=== PATIENT | male | born 1925 | race Caucasian/White ===

== ENCOUNTER → 2016-12-04 | Day surgery (SDC) | payer OTHER ==
[2016-11-20 14:45] VITALS: Ht 189.2 cm; Wt 81.8 kg
[~2016-12-04] VITALS: Ht 189.2 cm; Wt 81.8 kg
[~2016-12-04] MED LIST: ACETAMINOPHEN 325 MG TAB PO PRN; ASPI81TA28 PO; ATROPINE SULFATE 0.1 MG/ML 5ML SYR IV PRN; ATROPINE SULFATE 1% OP OINT PER APPLICATION CHARGE ONE; ATROPINE SULFATE 1% OP SOLN 2 ML BTL ONE; AcetylCHOLine CHL OP SOL 1:100 2 ML BTL ONE; BRIMONIDINE TART 0.2% OP SOLN PER DROP CHARGE ONE; BSS 500ML IRRIG ONE; BSS FLUSH ONE; CEFAZOLIN SOD 1 GM VIAL ONE; EpHEDrine SULFATE INJ 50 MG/ML AMP IV PRN; EpINEphrine INJ 1MG/ML AMP 1 MG/ML AMP ONE; FENTANYL CITRATE INJ 50 MCG/1 ML 2 ML VIAL IV PRN; FENTANYL CITRATE INJ 50 MCG/1 ML 2 ML VIAL ONE; HEALON 10MG/ML 0.85 ML SYR INSTIL ONE; HYDR2TAB48 PO; LACTATED RINGER'S 1000ML 500 ML IV ONE; LIDOCAINE 3.5% OPH GEL PER APPLICATION CHARGE OPR SCH; LIDOCAINE 4% OP SOLN DROP CHARGE ONE; LIDOCAINE 4% OP SOLN DROP CHARGE OPR SCH; LIDOCAINE HCL 1% 20 ML VIAL ONE; LIDOCAINE HCL 1% MPF 2 ML VIAL ONE; METO50TA7 PO; MIDAZOLAM HCL 1 MG/ML 2ML VIAL ONE; MOXIFLOXACIN OPH SOLN PER DROP CHARGE ONE; ONDANSETRON INJ 2 MG/ML 2 ML VIAL IV PRN; PHEN-876 PO; POVIDONE-IODINE OP SOLN 30 ML BTL ONE; PROPARACAINE 0.5% OP SOLN PER DROP CHARGE OPR SCH; SIMV80TA2 PO; TETRACAINE HCL (OPHTH) 60 DROPS/4 ML BTL OP ONE; TOBRAMYCIN/DEXAMETHASONE OPH OINT PER APPLN CHARGE ONE
[2016-12-04] MEDS: MOXIFLOXACIN OPH SOLN PER DROP CHARGE OPR SCH ×3 (09:01→09:21)
--- NOTE | 2016-12-04 09:12 | History & Physical Bridge - [place] ---
H&P Re-Evaluation Bridge Note: I have examined the patient, reviewed the History & Physical and in the interval since the performance of the History & Physical I have noted the following changes of clinical significance: No changes noted
--- NOTE | 2016-12-04 11:12 | Discharge Instructions-SurgCtr ---
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 Post Anesthesia Instructions: If you have had General Anesthesia or IV Sedation: * Do not drive today. * Resume driving when surgeon permits. * Do not make important decisions or sign legal documents today. * Call surgeon for: 1. Temperature elevations greater than 101 degrees F. 2. Uncontrollable pain. 3. Excessive bleeding. 4. Persistent nausea and vomiting. 5. Medication intolerance (nausea, vomiting or rash). * For nausea and vomiting use only clear liquids such as: tea, soda, bouillon until nausea subsides, then gradually increase diet as tolerated. * If you have any concerns or questions, call your surgeon's office. If physician is unavailable and it is an emergency, call 911 or go to the nearest emergency room. . Instructions / Follow-Up Instructions / Follow-Up ACTIVITY RECOMMENDATIONS: * Bedrest, eyes to the tj MEDICATIONS: Resume previous medications unless instructed otherwise by your surgeon. Eye drops (today and tomorrow): Gatifloxacin - one drop in operative eye every 2 hours while awake Prednisolone 1% - one drop in operative eye every 2 hours while awake SPECIAL CARE INSTRUCTIONS: * If any problems or concerns, please call Dr. Olmos's office at . * Keep plastic shield taped over eye to sleep at night. * Keep plastic shield taped over eye except to administer eye drops. * Keep plastic shield on until office visit the following day. FOLLOW UP VISIT: Follow-up with Dr. Olmos in the [place] office as scheduled. If not already scheduled, please call the office at . Diet Recommendations Home Diet: resume previous diet Procedures Procedures Performed: Right Descements Stripping Automated Endothelial Keratoplasty Pending Studies Studies pending at discharge: yes List of pending studies: cornea donor culture Medical Emergencies . Who to Call and When: Medical Emergencies: If at any time you feel your situation is an emergency, please call 911 immediately. . Non-Emergent Contact Non-Emergency issues call your: Casino Host . . "Provider Documentation" section prepared by Jake Olmos.
--- NOTE | 2016-12-04 11:12 | [facility] Post Operative Brief Note ---
Immediate Operative Summary Operative Date Dec 04, 2016. Pre-Operative Diagnosis Right Failed DSAEK, Corneal Edema Post-Operative Diagnosis Same Procedure(s) Performed Right Descements Stripping Automated Endothelial Keratoplasty Surgeon Dr. Olmos Telephone Repairer Surgeon(s) None Estimated Blood Loss 0 Findings Cornea edema/ failed DSAEK graft right eye Specimens A. Corneal Donor Rim for routine culture, gram stain, and aerobic Complication(s) None Disposition Recovery Room / PACU
[2016-12-04 11:15] VITALS: TEMP 36.2
--- NOTE | 2016-12-04 12:14 | OPERATIVE REPORT ---
DATE OF OPERATION: 12/04/2016 PREOPERATIVE DIAGNOSIS: Failed DSAEK graft with corneal edema, right eye. POSTOPERATIVE DIAGNOSIS: Same. PROCEDURE PERFORMED: Descemet stripping automated endothelial keratoplasty, right eye. COMPLICATIONS: None. ESTIMATED BLOOD LOSS: None. ANESTHESIA: Local with sedation. DESCRIPTION OF PROCEDURE: After informed consent was obtained in the holding area, attention was first turned to the donor cornea. It was placed endothelial side up on the endothelial trephine and trephinated with an 8.0 mm Selena trephine by myself. It was then covered in Optisol and set aside. The patient was then brought back to the operating room where cardiac monitoring leads and oxygen by nasal cannula was administered by anesthesia. Gentle IV sedation was given, and the patient's right eye was prepped and draped in usual sterile fashion. Wire lid speculum was placed in the right eye and the operating microscope swung into position. Using 0.12 forceps and a supersharp blade, a paracentesis port was made at the 11 o'clock position of the patient's right eye. 1% nonpreserved lidocaine was injected into the anterior chamber for anesthesia. The previously used Selena trephine was inked and used to delano the surface of the cornea for diameter of 8.0 mm. The temporal limbus was then marked for 4 mm and a 2.2 mm keratome blade was used to make the primary shelved incision at the 9 o'clock position of the patient's right eye and enlarged for a total of 4 mm. Anterior chamber was then filled with Healon and a failed DSAEK graft was removed from the eye using a reversed Sinskey hook and Utrata forceps. The stromal cheese cooker was then used to roughen the stromal bed in the periphery. The irrigation aspiration handpiece was then used to remove the viscoelastic material from the eye. The donor graft was then placed on the EndoSerter with a drop of Healon on it and retracted into the EndoSerter. The EndoSerter was then used to insert the donor cornea graft into the eye. It was then unfolded underneath BSS and air and a single 10-0 nylon suture was placed through the primary incision. A complete air fill of the eye was achieved and held for 10 minutes after which time the interface was milked using a Rubi Lasik roller. Another 10 minutes elapsed after which time, ReSure sealant was placed over the primary incision and the paracentesis port. The wire lid speculum was removed from the eye. Vigamox, brimonidine, TobraDex ointment and atropine were placed on the eye and the eye was shielded. The patient tolerated the procedure well and was taken to recovery area in stable condition. I attest to the content of the Intraoperative Record and any orders documented therein. Any exceptio ns are noted below.
[2016-12-04 12:17] VITALS: BP 165/73; PULSE 52; O2SAT 94
--- NOTE | 2016-12-04 12:20 | Anesthesia Progress Nt - [facility] ---
Anesthesia Post Op Note Date & Time Dec 04, 2016 at 12:20 Vital Signs Pain Intensity: 0 Vital Signs Past 12 Hours Date Time Temp Pulse Resp B/P Pulse Ox O2 Delivery O2 Flow Rate FiO2 12/04/16 12:17 52 16 165/73 94 Room Air 12/04/16 11:41 48 18 145/62 94 Room Air 12/04/16 11:15 36.2 63 16 164/79 99 Room Air 12/04/16 08:53 37.1 55 20 166/79 97 Room Air Notes Mental Status: alert / awake / arousable, participated in evaluation Pt Amnestic to Procedure: Yes Nausea / Vomiting: adequately controlled Pain: adequately controlled Airway Patency, RR, SpO2: stable & adequate BP & HR: stable & adequate Hydration State: stable & adequate Anesthetic Complications: no major complications apparent
== END | disposition home or self-care (01) ==
LOC: X.SURG 08:26
PROVIDERS: ATTEND Ophthalmology
DX: T86.841 Corneal transplant failure (principal); Y83.8 Other surgical procedures as the cause of abnormal reaction of the patient, or of later complication, without mention of misadventure at the time of the procedure; H18.20 Unspecified corneal edema; I10 Essential (primary) hypertension; Z86.73 Personal history of transient ischemic attack (TIA), and cerebral infarction without residual deficits; Z88.5 Allergy status to narcotic agent; Z68.22 Body mass index [BMI] 22.0-22.9, adult

== ENCOUNTER → 2016-12-06 | Day surgery (SDC) | payer OTHER ==
[2016-12-05 09:37] VITALS: Ht 189.2 cm; Wt 81.8 kg
[~2016-12-06] VITALS: Ht 189.2 cm; Wt 81.8 kg
[~2016-12-06] MED LIST changes: +AMVISC PLUS 0.8ML SYRINGE INT OCU ONE; -ATROPINE SULFATE 1% OP OINT PER APPLICATION CHARGE ONE; -AcetylCHOLine CHL OP SOL 1:100 2 ML BTL ONE; -BSS 500ML IRRIG ONE; -CEFAZOLIN SOD 1 GM VIAL ONE; -EpINEphrine INJ 1MG/ML AMP 1 MG/ML AMP ONE; -HEALON 10MG/ML 0.85 ML SYR INSTIL ONE; -LIDOCAINE HCL 1% 20 ML VIAL ONE; +NURSING VERBAL MED ORDER ONE; -ONDANSETRON INJ 2 MG/ML 2 ML VIAL IV PRN; +PHENYLEPHRINE 100MCG/ML 5ML SYR IV PRN; -TETRACAINE HCL (OPHTH) 60 DROPS/4 ML BTL OP ONE
[2016-12-06] MEDS: MOXIFLOXACIN OPH SOLN PER DROP CHARGE OPR SCH ×3 (06:39→06:54)
--- NOTE | 2016-12-06 07:37 | Discharge Instructions-SurgCtr ---
Discharge Instructions Visit Reason for Visit: Right Eye Secondary Cornea Edema Discharge Discharge Diagnosis / Problem: refloat DSAEK graft right eye Discharge Goals Goal(s): Improve function Activity Recommendations Activity Limitations: per Instructions/Follow-up section Lifting Limitations: until after follow-up appointment Anesthesia . Post Anesthesia Instructions: If you have had General Anesthesia or IV Sedation: * Do not drive today. * Resume driving when surgeon permits. * Do not make important decisions or sign legal documents today. * Call surgeon for: 1. Temperature elevations greater than 101 degrees F. 2. Uncontrollable pain. 3. Excessive bleeding. 4. Persistent nausea and vomiting. 5. Medication intolerance (nausea, vomiting or rash). * For nausea and vomiting use only clear liquids such as: tea, soda, bouillon until nausea subsides, then gradually increase diet as tolerated. * If you have any concerns or questions, call your surgeon's office. If physician is unavailable and it is an emergency, call 911 or go to the nearest emergency room. . Instructions / Follow-Up Instructions / Follow-Up ACTIVITY RECOMMENDATIONS: * Bedrest, eyes to the tj. MEDICATIONS: Resume previous medications unless instructed otherwise by your surgeon. Eye drops (today and tomorrow): Gatifloxacin - one drop in operative eye 4 times a day Prednisolone 1% - one drop in operative eye 4 times a day SPECIAL CARE INSTRUCTIONS: * If any problems or concerns, please call Dr. Olmos's office at . * Keep plastic shield taped over eye to sleep at night. * Keep plastic shield taped over eye except to administer eye drops. * Keep plastic shield on until office visit the following day. FOLLOW UP VISIT: Follow-up with Dr. Olmos in the [place] office as scheduled. If not already scheduled, please call the office at . Diet Recommendations Home Diet: resume previous diet Procedures Procedures Performed: Right Eye Refloatation Of Cornea Graft Pending Studies Studies pending at discharge: no Medical Emergencies . Who to Call and When: Medical Emergencies: If at any time you feel your situation is an emergency, please call 911 immediately. . Non-Emergent Contact Non-Emergency issues call your: Weapons And Tactics Instructor . . "Provider Documentation" section prepared by Jake Olmos.
--- NOTE | 2016-12-06 07:37 | [facility] Post Operative Brief Note ---
Immediate Operative Summary Operative Date Dec 06, 2016. Pre-Operative Diagnosis Right Eye Detached DSAEK Graft Post-Operative Diagnosis Same Procedure(s) Performed Right Eye Refloatation Of Cornea Graft Surgeon Dr. Olmos Cylinder Press Operator Apprentice Surgeon(s) None Estimated Blood Loss 0 mL Findings detached dsaek graft right eye Specimens None Complication(s) None Disposition Recovery Room / PACU
--- NOTE | 2016-12-06 08:02 | OPERATIVE REPORT ---
DATE OF OPERATION: 12/06/2016 PREOPERATIVE DIAGNOSIS: Detached DSAEK graft, right eye. POSTOPERATIVE DIAGNOSIS: Same. PROCEDURE PERFORMED: Refloat DSAEK graft, right eye. COMPLICATIONS: None. ESTIMATED BLOOD LOSS: None. ANESTHESIA: Local with sedation. DESCRIPTION OF PROCEDURE: After informed consent was obtained in the holding area, the patient was taken to the operating room, where cardiac monitoring leads and oxygen by nasal cannula was administered by anesthesia. Gentle IV sedation was given and the patient's right eye was prepped and draped in the usual sterile fashion. A wire lid speculum was placed in the right eye and the operating microscope was swung into position. Using a cannula with lidocaine 1% nonpreserved on it, the paracentesis port at the 11 o'clock position was entered and a cannula was passed into the anterior chamber and the anterior chamber was irrigated with lidocaine. It was then used to remove an air bubble from behind the AC IOL. BSS cannula was then used to inflate the eye and then a little bit of the pressure was relieved. Air on a cannula was then used to refloat the DSAEK graft to the host posterior cornea. It was then positioned using a reverse Sinskey hook. Air on a 30-gauge 0.5-inch needle was used to get a complete air fill of the anterior chamber. This was held for 10 minutes, after which time, ReSure sealant was placed over the paracentesis ports, the tract of the 30 gauge 0.5-inch needle as well as the old main incision. Atropine, Vigamox and TobraDex ointment were placed on the eye. The wire lid speculum was removed from the eye. The patient was sent to recovery to lay flat for 3 hours before being discharged home. I attest to the content of the Intraoperative Record and any orders documented therein. Any exceptions are noted below. MTDD
[2016-12-06 11:17] VITALS: TEMP 36.6
[2016-12-06 11:47] VITALS: BP 178/85; PULSE 70; O2SAT 95
--- NOTE | 2016-12-11 15:15 | Anesthesia Progress Nt - [facility] ---
Anesthesia Post Op Note Date & Time Dec 11, 2016 at 15:13 Vital Signs Pain Intensity: 3 Notes Mental Status: alert / awake / arousable, participated in evaluation Pt Amnestic to Procedure: Yes Nausea / Vomiting: adequately controlled Pain: adequately controlled Airway Patency, RR, SpO2: stable & adequate BP & HR: stable & adequate Hydration State: stable & adequate Anesthetic Complications: no major complications apparent Review of EMR at this time indicates that pt was discharged without postoperative complications or complaints.
== END | disposition home or self-care (01) ==
LOC: X.SURG 06:11
PROVIDERS: ATTEND Ophthalmology
DX: T85.328A Displacement of other ocular prosthetic devices, implants and grafts, initial encounter (principal); Y84.8 Other medical procedures as the cause of abnormal reaction of the patient, or of later complication, without mention of misadventure at the time of the procedure; Z94.7 Corneal transplant status; H40.20X0 Unspecified primary angle-closure glaucoma, stage unspecified; H04.129 Dry eye syndrome of unspecified lacrimal gland; I10 Essential (primary) hypertension

== ENCOUNTER → 2016-12-18 | Day surgery (SDC) | payer OTHER ==
[2016-12-11 08:10] VITALS: BMI 22.0
--- NOTE | 2016-12-11 10:15 | PAT Medication Instructions ---
Service Date Dec 11, 2016. Current Home Medication List Aspirin (Aspirin Ec), 81 MG PO QAM Metoprolol Succ (Toprol Xl) (Toprol-Xl), 25 MG PO QAM Simvastatin (Zocor), 40 MG PO QPM Medication Instructions For Your Scheduled Surgery - Check with surgeon/radiology clerk/primary care provider for instructions: Aspirin (Aspirin Ec), 81 MG PO QAM - Take the following medications the morning of surgery with a sip of water: Metoprolol Succ (Toprol Xl) (Toprol-Xl), 25 MG PO QAM - Take the following medications as scheduled the night before surgery: Simvastatin (Zocor), 40 MG PO QPM If you have any questions please call us at [phone] (Elma Albarado PA-C) or [phone] or [phone]
--- NOTE | 2016-12-11 10:53 | DIAGNOSTIC IMAGING REPORT ---
TWO VIEW CHEST CLINICAL HISTORY: Bladder tumor. Preoperative examination. FINDINGS: PA and lateral chest radiographs are compared to study dated 07/01/2013. The heart is enlarged and there is atherosclerotic calcification of the thoracic aorta. The pulmonary vasculature is noncongested. Advanced emphysema and chronic interstitial thickening is similar to previous. There is no airspace consolidation or large pleural effusion. Calcified hilar lymph nodes are observed. A calcified granuloma is present in the left mid abdomen. There is no pneumothorax. The skeletal structures are osteopenic. Degenerative change and hyperkyphosis is noted in the thoracic spine. IMPRESSION: Cardiomegaly, emphysema, and chronic parenchymal changes as above. There is no active disease in the chest. Electronically signed by: Yang Villegas M.D. 12/11/2016 10:51 AM Dictated Date/Time: 12/11/2016 10:50 AM
[2016-12-11 11:11] LABS: BASO % 0.9 %; BASO ABS # 0.06 K/uL (0-0.2); COMPLETE YES; EOS % 3.1 %; HEMATOCRIT 43.3 % (42-52); IG% 0.3 %; LYMPH % 26.9 %; LYMPH ABS # 1.81 K/uL (1.2-3.4); MEAN CELL VOLUME 93.1 fL (80-100); MEAN CORPUSCULAR HEMOGLOBIN 30.8 pg (25-34); MEAN PLATELET VOLUME 11.3 fL (7.4-10.4); NEUT % 56.8 %; PLATELET COUNT 210 K/uL (130-400); RED BLOOD COUNT 4.65 M/uL (4.7-6.1); WHITE BLOOD COUNT 6.73 K/uL (4.8-10.8)
[2016-12-11 11:12] LABS: URINE APPEARANCE CLEAR (CLEAR); URINE BILIRUBIN NEG (NEG); URINE COLOR YELLOW; URINE EPITHELIAL CELL AUTO 20-30 /lpf (0-5); URINE NITRITE NEG (NEG); URINE SPECIFIC GRAVITY 1.007 (1.000-1.030); UROBILINOGEN NEG (NEG)
[2016-12-11 11:19] LABS: MANUAL MICROSCOPIC REQUIRED? NO; REVIEW REQ? NO
[2016-12-11 11:38] LABS: CALCIUM 9.6 mg/dl (8.5-10.1); POTASSIUM 4.5 mmol/L (3.5-5.1)
[~2016-12-18] VITALS: Ht 188 cm; Wt 81.8 kg
[~2016-12-18] MED LIST changes: -ACETAMINOPHEN 325 MG TAB PO PRN; -AMVISC PLUS 0.8ML SYRINGE INT OCU ONE; -ATROPINE SULFATE 1% OP SOLN 2 ML BTL ONE; -BRIMONIDINE TART 0.2% OP SOLN PER DROP CHARGE ONE; -BSS FLUSH ONE; +CIPROFLOXACIN / D5W 400 MG IV SCH; +EpHEDrine SULFATE INJ 50 MG/ML AMP ONE; -FENTANYL CITRATE INJ 50 MCG/1 ML 2 ML VIAL IV PRN; +LACTATED RINGER'S 1000ML 1,000 ML IV SCH; -LACTATED RINGER'S 1000ML 500 ML IV ONE; -LIDOCAINE 3.5% OPH GEL PER APPLICATION CHARGE OPR SCH; -LIDOCAINE 4% OP SOLN DROP CHARGE ONE; -LIDOCAINE 4% OP SOLN DROP CHARGE OPR SCH; -LIDOCAINE HCL 1% MPF 2 ML VIAL ONE; +LIDOCAINE HCL 2% 2 ML VIAL (20MG/ML) ONE; -MIDAZOLAM HCL 1 MG/ML 2ML VIAL ONE; -MOXIFLOXACIN OPH SOLN PER DROP CHARGE ONE; -NURSING VERBAL MED ORDER ONE; +ONDANSETRON INJ 2 MG/ML 2 ML VIAL ONE; +PHENAZOPYRIDINE HCL 200 MG TAB PO PRN; -PHENYLEPHRINE 100MCG/ML 5ML SYR IV PRN; -POVIDONE-IODINE OP SOLN 30 ML BTL ONE; -PROPARACAINE 0.5% OP SOLN PER DROP CHARGE OPR SCH; +PROPOFOL IV EMULSION 10 MG/ML 20 ML VIAL IV ONE; -TOBRAMYCIN/DEXAMETHASONE OPH OINT PER APPLN CHARGE ONE; +WATER, STERILE FOR INJ 10 ML VIAL ONE
[2016-12-18 05:45] VITALS: Ht 188 cm; Wt 81.8 kg
[2016-12-18 05:46] VITALS: BP 173/80; PULSE 76; TEMP 36.7; O2SAT 95
--- NOTE | 2016-12-18 08:30 | [facility] Post Operative Brief Note ---
Immediate Operative Summary Operative Date Dec 18, 2016. Pre-Operative Diagnosis Bladder Tumor Post-Operative Diagnosis Bladder tumor Procedure(s) Performed Transurethral Resection Bladder Tumor Surgeon Dr. Magno Mcfadden Metal Patternmaker Surgeon(s) None Estimated Blood Loss 1mL Findings multiple small papillary bladder tumors Specimens Specimen A. Bladder Tumor
--- NOTE | 2016-12-18 08:33 | Discharge Instructions ---
Discharge Instructions Visit Reason for Visit: Bladder Tumor Discharge Discharge Diagnosis / Problem: bladder cancer Discharge Goals Goal(s): Therapeutic intervention Activity Recommendations Activity Limitations: resume your previous activity (take it easy today) Anesthesia . Post Anesthesia Instructions: If you have had General Anesthesia or IV Sedation: * Do not drive today. * Resume driving when surgeon permits. * Do not make important decisions or sign legal documents today. * Call surgeon for: 1. Temperature elevations greater than 101 degrees F. 2. Uncontrollable pain. 3. Excessive bleeding. 4. Persistent nausea and vomiting. 5. Medication intolerance (nausea, vomiting or rash). * For nausea and vomiting use only clear liquids such as: tea, soda, bouillon until nausea subsides, then gradually increase diet as tolerated. * If you have any concerns or questions, call your surgeon's office. If physician is unavailable and it is an emergency, call 911 or go to the nearest emergency room. . Diet Recommendations Recommended Home Diet: resume previous diet Procedures Procedures Performed: Transurethral Resection Bladder Tumor Pending Studies Studies pending at discharge: no Medical Emergencies . Who to Call and When: Medical Emergencies: If at any time you feel your situation is an emergency, please call 911 immediately. . Non-Emergent Contact Non-Emergency issues call your: Urologist . . "Provider Documentation" section prepared by Magno Mcfadden.
--- NOTE | 2016-12-18 08:49 | OPERATIVE REPORT ---
DATE OF OPERATION: 12/18/2016 PREOPERATIVE DIAGNOSIS: Bladder cancer. POSTOPERATIVE DIAGNOSIS: Same. PROCEDURE: Cystoscopy, excisional biopsy of multiple bladder tumors and fulguration. FINDINGS: Cystoscopic exam revealed normal anterior urethra. Prostatic fossa was moderately obstructing. Bladder showed 1-2+ trabeculation with cellules. There was 1 small diverticulum. Both ureteral orifices were effluxing clear urine. There was a cluster of several papillary tumors posterior wall. SURGEON: Dr. Mcfadden. ANESTHESIA: General. DRAINS: None. COMPLICATIONS: None. SPECIMENS: Bladder biopsy. INDICATIONS FOR PROCEDURE: The patient is an 89-year-old white male who on cystoscopy was found to have multiple bladder tumors. He is being brought in now for treatment. DESCRIPTION OF PROCEDURE: After the induction of an adequate general anesthetic and appropriate time-out, the patient was placed in the dorsal lithotomy position, lower abdomen and genitalia were prepped with Hibiclens and draped in a sterile fashion. Using a 22-Bulgarian cystoscope, a routine cystoscopic exam was performed with the above noted findings with the 30 and 70 degree lenses. Next, using cold cup biopsy forceps, the tumors were biopsied in there entirety and the specimens were handed off the table. After completing this, the area was fulgurated with a Bugby electrode for hemostasis. After completing the fulguration and making sure all the tumors were fulgurated, final view revealed no bleeding from the resection site. The patient's bladder was then drained, cystoscope and sheath were removed. All needle, sponge and instrument counts were correct at the end of the case. The patient tolerated the procedure well and went to the recovery room in stable condition. I attest to the content of the Intraoperative Record and any orders documented therein. Any exceptio ns are noted below.
--- NOTE | 2016-12-18 09:07 | Anesthesiology Progress Note ---
Anesthesia Post Op Note Date & Time Dec 18, 2016 at 09:07 Vital Signs Pain Intensity: 0 Vital Signs Past 12 Hours Date Time Temp Pulse Resp B/P Pulse Ox O2 Delivery O2 Flow Rate FiO2 12/18/16 08:55 78 18 147/118 100 Room Air 12/18/16 08:45 72 22 141/65 100 Mask 10 12/18/16 08:35 72 18 150/73 100 Mask 10 12/18/16 08:29 36.1 73 14 164/81 100 Mask 10 12/18/16 05:46 36.7 76 16 173/80 95 Room Air Notes Mental Status: alert / awake / arousable, participated in evaluation Pt Amnestic to Procedure: Yes Nausea / Vomiting: adequately controlled Pain: adequately controlled Airway Patency, RR, SpO2: stable & adequate BP & HR: stable & adequate Hydration State: stable & adequate Anesthetic Complications: no major complications apparent
[2016-12-18 09:10] VITALS: BP 149/76; PULSE 62; TEMP 36.4; O2SAT 96
[2016-12-18 09:40] VITALS: BP 156/80; PULSE 78; TEMP 36.3; O2SAT 99
== END | disposition home or self-care (01) ==
LOC: C.ACU 05:04
PROVIDERS: ATTEND Urology
DX: C67.9 Malignant neoplasm of bladder, unspecified (principal); C67.4 Malignant neoplasm of posterior wall of bladder; N32.89 Other specified disorders of bladder; Z87.891 Personal history of nicotine dependence; I10 Essential (primary) hypertension; N40.1 Benign prostatic hyperplasia with lower urinary tract symptoms; N13.8 Other obstructive and reflux uropathy

== ENCOUNTER → 2016-12-25 | Day surgery (SDC) | payer OTHER ==
[2016-12-11 08:23] VITALS: Ht 189.2 cm; Wt 81.8 kg
[~2016-12-25] VITALS: Ht 189.2 cm; Wt 81.8 kg
[~2016-12-25] MED LIST changes: -ATROPINE SULFATE 0.1 MG/ML 5ML SYR IV PRN; -CIPROFLOXACIN / D5W 400 MG IV SCH; -EpHEDrine SULFATE INJ 50 MG/ML AMP IV PRN; -EpHEDrine SULFATE INJ 50 MG/ML AMP ONE; -FENTANYL CITRATE INJ 50 MCG/1 ML 2 ML VIAL ONE; -LACTATED RINGER'S 1000ML 1,000 ML IV SCH; -LIDOCAINE HCL 2% 2 ML VIAL (20MG/ML) ONE; -ONDANSETRON INJ 2 MG/ML 2 ML VIAL ONE; -PHENAZOPYRIDINE HCL 200 MG TAB PO PRN; -PROPOFOL IV EMULSION 10 MG/ML 20 ML VIAL IV ONE; -WATER, STERILE FOR INJ 10 ML VIAL ONE
== END | disposition home or self-care (01) ==
LOC: C.PAT 11:18 → EDSTATUS 11:45
PROVIDERS: ATTEND Ophthalmology
DX: T85.398A Other mechanical complication of other ocular prosthetic devices, implants and grafts, initial encounter (principal); Y84.8 Other medical procedures as the cause of abnormal reaction of the patient, or of later complication, without mention of misadventure at the time of the procedure